=== PATIENT | female | born 1940 | race Caucasian/White ===

== ENCOUNTER → 2017-11-20 | Outpatient (CLI) | payer MEDICARE, OTHER ==
[~2017-11-20] MED LIST: ALEN70 PO; CALCIUM + D3 E1 EACH PO; CEPH500 PO; HYDR1TAB94 PO; Keflex500 MG PO; Percocet 5-3251 EACH PO; Zofran Odt4 MG SL
== END | disposition home or self-care (01) ==
LOC: LAB 11:51
DX: N30.91 Cystitis, unspecified with hematuria (principal)
CPT/HCPCS: 87086